=== PATIENT | male | born 1980 | race American Indian/Alaskan Native ===

== ENCOUNTER 2017-07-12 12:42 | Emergency (ER) | payer OTHER ==
[2017-07-12 12:52] VITALS: BP 139/77
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
--- NOTE | 2017-07-12 13:56 | XRay Report ---
RIGHT ANKLE, 3 views: History: Injury, swelling. Findings: Mild soft tissue swelling is identified. No acute osseous abnormality or joint pathology is identified. The fifth metatarsal base is intact. Impression: Soft tissue swelling. No acute osseous injury.
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
== END 2017-07-12 15:53 | disposition home or self-care (01) ==
LOC: ED 12:42
DX: S93.401A Sprain of unspecified ligament of right ankle, initial encounter (principal); S01.351A Open bite of right ear, initial encounter; F17.200 Nicotine dependence, unspecified, uncomplicated; F12.10 Cannabis abuse, uncomplicated; Y04.1XXA Assault by human bite, initial encounter; Y93.89 Activity, other specified; Y92.89 Other specified places as the place of occurrence of the external cause; Y99.8 Other external cause status
CPT/HCPCS: 99283

== ENCOUNTER 2020-02-26 19:52 | Emergency (ER) | payer SELFPAY ==
[2020-02-26 20:42] VITALS: BP 137/81
--- NOTE | 2020-02-26 20:53 | Event Note ---
ED Screening Note ED Screening Note: two days ago symptoms started +cough +chest pain after coughing +n/v/d two episodes of vomiting states he had diarrhea all day +fever of 102 states he took advil 12:30 PM no sick contacts states he went to [place] 2 weeks ago +smoker This initial assessment/diagnostic orders/clinical plan/treatment(s) is/are subject to change based on patients health status, clinical progression and re- assessment by fellow clinical providers in the ED. Further treatment and workup at subsequent clinical providers discretion. Patient/guardian urged not to elope from the ED as their condition may be serious if not clinically assessed and managed. Initial orders include: labs CXR
[2020-02-26 22:32] LABS: Basophils % (Auto) 0.6 % (0.0-1.8); Eosinophils # (Auto) 0.3 K/mm3 (0.0-0.4); Eosinophils % (Auto) 3.7 % (0.0-4.3); Hematocrit 45.2 % (35.5-45.6); Hemoglobin 15.1 gm/dl (11.8-15.2); Lymphocytes # (Auto) 2.4 K/mm3 (1.2-5.4); Lymphocytes % (Auto) 31.1 % (13.4-35.0); Mean Corpuscular HGB Conc 33 % (32-34); Mean Corpuscular Volume 98 fl (84-94); Monocytes # (Auto) 0.8 K/mm3 (0.0-0.8); Monocytes % (Auto) 10.6 % (0.0-7.3); Platelet Count 304 K/mm3 (140-440); Red Blood Count 4.61 M/mm3 (3.65-5.03); Red Cell Distribution Width 13.3 % (13.2-15.2)
[2020-02-26 22:44] LABS: Alanine Aminotransferase 22 units/L (7-56); Albumin 4.3 g/dL (3.9-5); BUN/Creatinine Ratio 18; Blood Urea Nitrogen 16 mg/dL (9-20); Calcium 9.6 mg/dL (8.4-10.2); Hemolysis Index 118
--- NOTE | 2020-02-26 22:46 | XRay Report ---
CHEST 2 VIEWS INDICATION / CLINICAL INFORMATION: cough, fever. COMPARISON: None available. FINDINGS: SUPPORT DEVICES: None. HEART / MEDIASTINUM: No significant abnormality. LUNGS / PLEURA: No significant pulmonary or pleural abnormality. No pneumothorax. ADDITIONAL FINDINGS: No significant additional findings. IMPRESSION: 1. No acute findings. Signer Name: Adrien Schmitz MD Signed: 02/26/2020 10:42 PM Workstation Name: [id number]
[2020-02-26] MEDS ORDERED: predniSONE 50 MG TAB PO ONE (23:51)
[2020-02-26] MEDS ORDERED: IBUPROFEN 600 MG TAB PO ONE (23:51)
--- NOTE | 2020-02-26 23:57 | Emergency Department Report ---
- General Chief Complaint: Upper Respiratory Infection Stated Complaint: HEADACHE/CHEST PAIN/COUGHING Time Seen by Provider: 02/26/20 20:51 Source: patient Mode of arrival: Ambulatory Limitations: No Limitations - History of Present Illness Initial Comments: Patient is a 40-year-old -[place] male with a history of chronic heavy tobacco abuse who presents to the ED with complaint of acute onset persistent nasal and sinus congestion, frontal sinus pressure and headache, persistent dry cough with pleuritic chest wall pain for the last 3 days, worse in the last 12 hours. Patient states that he has not smoked cigarettes in the last 3 days because of his symptoms. Patient denies dizziness, syncope, fever, chills, nausea and vomiting or diarrhea, abdominal pain, chest pain or shortness of breath, body aches and pains or dysuria. MD Complaint: cough, rhinorrhea, nasal congestion, sinus pain, other (Pleuritic chest pain from cough) -: Sudden, days(s) (3) Severity: severe Severity scale (0 -10): 7 Quality: sharp, aching Consistency: intermittent Improves With: nothing Worsens With: nothing Associated Symptoms: headache, rhinorrhea, nasal congestion, cough, chest pain (Pleuritic chest wall pain). denies: fever, chills, myalgias, diaphoresis, sore throat, shortness of breath, abdominal pain, nausea, vomiting, dysuria, confusion, weight loss, epistaxis, hoarseness Treatments Prior to Arrival: none - Related Data Previous Rx's Medication Instructions Recorded Last Taken Type Amoxicillin/K Clav Tab [Augmentin 1 tab PO Q12HR #20 tab 07/12/17 Unknown Rx 875 mg] Ibuprofen [Motrin] 600 mg PO Q8H PRN #30 tablet 07/12/17 Unknown Rx Azithromycin [Zithromax Z-VIVIANA] 250 mg PO DAILY #6 tablet 02/26/20 Unknown Rx Benzonatate [Tessalon Perles] 100 mg PO Q8HR #30 capsule 02/26/20 Unknown Rx Cetirizine HCl [Zyrtec 10mg tab] 10 mg PO DAILY #30 tablet 02/26/20 Unknown Rx Ibuprofen [Motrin] 800 mg PO Q8HR PRN #24 tablet 02/26/20 Unknown Rx predniSONE [Deltasone] 40 mg PO QDAY #12 tab 02/26/20 Unknown Rx Allergies Allergy/AdvReac Type Severity Reaction Status Date / Time No Known Allergies Allergy Unverified 07/12/17 12:51 ED Review of Systems ROS: Stated complaint: HEADACHE/CHEST PAIN/COUGHING Other details as noted in HPI Constitutional: denies: chills, fever Eyes: denies: eye pain, eye discharge, vision change ENT: congestion, other (Frontal sinus pressure). denies: ear pain, throat pain Respiratory: cough (Dry cough). denies: shortness of breath, wheezing Cardiovascular: chest pain (Pleuritic chest wall pain). denies: palpitations Endocrine: no symptoms reported Gastrointestinal: denies: abdominal pain, nausea, vomiting, diarrhea Genitourinary: denies: urgency, dysuria Musculoskeletal: denies: back pain, joint swelling, arthralgia Skin: denies: rash, lesions Neurological: headache. denies: weakness, paresthesias Psychiatric: denies: anxiety, depression Hematological/Lymphatic: denies: easy bleeding, easy bruising ED Past Medical Hx - Past Medical History Previous Medical History?: No - Surgical History Past Surgical History?: Yes Additional Surgical History: Right hip replacement - Social History Smoking Status: Never Smoker Substance Use Type: None - Medications Home Medications: Home Medications Medication Instructions Recorded Confirmed Last Taken Type Amoxicillin/K Clav Tab [Augmentin 1 tab PO Q12HR #20 tab 07/12/17 Unknown Rx 875 mg] Ibuprofen [Motrin] 600 mg PO Q8H PRN #30 tablet 07/12/17 Unknown Rx Azithromycin [Zithromax Z-VIVIANA] 250 mg PO DAILY #6 tablet 02/26/20 Unknown Rx Benzonatate [Tessalon Perles] 100 mg PO Q8HR #30 capsule 02/26/20 Unknown Rx Cetirizine HCl [Zyrtec 10mg tab] 10 mg PO DAILY #30 tablet 02/26/20 Unknown Rx Ibuprofen [Motrin] 800 mg PO Q8HR PRN #24 tablet 02/26/20 Unknown Rx predniSONE [Deltasone] 40 mg PO QDAY #12 tab 02/26/20 Unknown Rx ED Physical Exam - General Limitations: No Limitations General appearance: alert, in no apparent distress - Head Head exam: Present: atraumatic, normocephalic, normal inspection - Eye Eye exam: Present: normal appearance, PERRL, EOMI Pupils: Present: normal accommodation - ENT ENT exam: Present: normal orophraynx, mucous membranes moist, TM's normal bilaterally, normal external ear exam, other (Grossly congested nasal passages; palpable frontal sinus tenderness) - Neck Neck exam: Present: normal inspection, full ROM. Absent: tenderness, lymphadenopathy - Respiratory Respiratory exam: Present: normal lung sounds bilaterally. Absent: respiratory distress, wheezes, rales, rhonchi, stridor, chest wall tenderness, accessory muscle use - Cardiovascular Cardiovascular Exam: Present: regular rate, normal rhythm, normal heart sounds. Absent: systolic murmur, diastolic murmur, rubs, gallop - GI/Abdominal GI/Abdominal exam: Present: soft, normal bowel sounds. Absent: tenderness, guarding, hyperactive bowel sounds, hypoactive bowel sounds - Extremities Exam Extremities exam: Present: normal inspection, full ROM, normal capillary refill - Back Exam Back exam: Present: normal inspection, full ROM. Absent: tenderness, CVA tenderness (R), CVA tenderness (L), muscle spasm, paraspinal tenderness, vertebral tenderness - Neurological Exam Neurological exam: Present: alert, oriented X3, CN II-XII intact, normal gait, reflexes normal - Psychiatric Psychiatric exam: Present: normal affect, normal mood - Skin Skin exam: Present: warm, dry, intact, normal color. Absent: rash ED Course Vital Signs 02/26/20 20:41 Temperature 98.2 F Pulse Rate 65 Respiratory 20 Rate Blood Pressure 137/81 O2 Sat by Pulse 97 Oximetry ED Medical Decision Making - Lab Data Result diagrams: 02/26/20 21:04 02/26/20 21:04 - Radiology Data Radiology results: report reviewed, image reviewed Findings [facility] [address] [place] [address] XRay Report Signed Patient: FLORENCE REMY MR#: [id number] : 1980 Acct:[id number] Age/Sex: 40 / M ADM Date: 02/26/20 Loc: ED Attending Dr: Ordering Physician: DARRIUS PRECIADO Date of Service: 02/26/20 Procedure(s): XR chest routine 2V Accession Number(s): [id number] cc: DARRIUS PRECIADO Fluoro Time In Minutes: CHEST 2 VIEWS INDICATION / CLINICAL INFORMATION: cough, fever. COMPARISON: None available. FINDINGS: SUPPORT DEVICES: None. HEART / MEDIASTINUM: No significant abnormality. LUNGS / PLEURA: No significant pulmonary or pleural abnormality. No pneumothor ax. ADDITIONAL FINDINGS: No significant additional findings. IMPRESSION: 1. No acute findings. Signer Name: Nathan Schmitz MD Signed: 02/26/2020 10:42 PM Workstation Name: [id number] Transcribed By: RH Dictated By: NATHAN SCHMITZ III Electronically Authenticated By: NATHAN SCHMITZ III Signed Date/Time: 02/26/202241 DD/ 40 TD/TT: - Medical Decision Making This is a 40-year-old -[place] male with a history of chronic heavy tobacco abuse who presents to the ED with complaint of acute onset persistent nasal and sinus congestion, frontal sinus pressure and headache, persistent dry cough with pleuritic chest wall pain for the last 3 days, worse in the last 12 hours. Patient states that he has not smoked cigarettes in the last 3 days because of his symptoms. In the ED, patient is alert and oriented x3 and is not in distress. Patient's vital signs are stable. Chest x-ray shows no acute cardiopulmonary abnormalities or pneumonitis. Lab test results were reviewed and are all nonactionable. Patient was treated for pain in the ED and also given initial oral steroids. Patient was discharged home on medications and advised to follow-up with his primary care physician in 5 to 7 days for reevaluation. Patient is advised return to the ED immediately if symptoms get worse. - Differential Diagnosis Sinusitis; Bronchitis; Pneumonia; URI; Covid-19 Critical care attestation.: If time is entered above; I have spent that time in minutes in the direct care of this critically ill patient, excluding procedure time. ED Disposition Clinical Impression: Acute non-recurrent frontal sinusitis, Acute upper respiratory infection Acute bronchitis Qualifiers: Bronchitis organism: other organism Qualified Code(s): J20.8 - Acute bronchitis due to other specified organisms Disposition: DC-01 TO HOME OR SELFCARE Is pt being admited?: No Does the pt Need Aspirin: No Condition: Stable Instructions: Acute Bronchitis (ED), Sinusitis, Adult, [id number], Upper Respiratory Infection, Adult, [id number], Cough, Adult, [id number], Acute Bronchitis, Adult, Xrbk-[id number] Additional Instructions: Chest x-ray shows no acute cardiopulmonary abnormalities or pneumonitis. Therefore take medication with food, drink plenty of fluids and follow-up with your primary care physician in 7 to 10 days for reevaluation. Return to the ED immediately if symptoms get worse. Prescriptions: predniSONE [Deltasone] 40 mg PO QDAY #12 tab Ibuprofen [Motrin] 800 mg PO Q8HR PRN #24 tablet PRN Reason: Pain , Severe (7-10) Benzonatate [Tessalon Perles] 100 mg PO Q8HR #30 capsule Azithromycin [Zithromax Z-VIVIANA] 250 mg PO DAILY #6 tablet Cetirizine HCl [Zyrtec 10mg tab] 10 mg PO DAILY #30 tablet Referrals: [facility] [Provider Group] - 7-10 days Time of Disposition: 23:58 Print Language: GREENLANDIC
== END 2020-02-27 00:45 | disposition home or self-care (01) ==
LOC: ED 19:52
DX: J01.10 Acute frontal sinusitis, unspecified (principal); J20.8 Acute bronchitis due to other specified organisms; Z79.899 Other long term (current) drug therapy
CPT/HCPCS: 36415; 71046; 80053; 85025; 99283; J7512